=== PATIENT | male | born 1965 | race Two or more races ===

== ENCOUNTER 2017-07-31 21:28 | Emergency (ER) | payer SELFPAY ==
[2017-07-31 23:12] LABS: ADD MAN DIFF? NO
[2017-07-31] MEDS: diphenhydrAMINE 50 MG/ML VIAL IVP (23:12)
[2017-07-31] MEDS: PROCHLORPERAZINE 10 MG/2 ML VIAL. IV (23:13)
[2017-07-31 23:14] LABS: BASO # 0.1 x10^3/uL (0.0-0.2); BASO % 1 % (0-3); EOS # 0.1 x10^3/uL (0.0-0.7); EOS % 1 % (0-3); HEMATOCRIT 45.2 % (39.0-53.0); HEMOGLOBIN 15.9 g/dL (13.0-17.5); LYMPH # 2.1 x10^3/uL (1.0-4.8); LYMPH % 21 % (24-48); MEAN CORPUSCULAR HEMOGLOBIN 34 pg (25-35); MEAN CORPUSCULAR HGB CONC 35 g/dL (31-37); MEAN CORPUSCULAR VOLUME 96 fL (79-100); MONO # 0.9 x10^3/uL (0.0-1.1); MONO % 9 % (0-9); NEUT # 6.9 x10^3uL (1.8-7.7); NEUT % 69 % (31-73); PLATELET COUNT 152 x10^3/uL (140-400); RED BLOOD COUNT 4.73 x10^6/uL (4.30-5.70); WHITE BLOOD COUNT 10.1 x10^3/uL (4.0-11.0)
[2017-07-31] MEDS: IV NORMAL SALINE 1000ML BAG 1,000 ML IV (23:16)
[2017-07-31 23:24] LABS: ANION GAP 9 (6-14); BLOOD UREA NITROGEN 10 mg/dL (8-26); CALCIUM 8.7 mg/dL (8.5-10.1); CARBON DIOXIDE 26 mmol/L (21-32); CHLORIDE 101 mmol/L (98-107); GFR 79.4; GLUCOSE 110 mg/dL (70-99); POTASSIUM 3.9 mmol/L (3.5-5.1); SODIUM 136 mmol/L (136-145)
[2017-07-31 23:29] LABS: CREATINE KINASE 114 U/L (39-308); MAGNESIUM 1.8 mg/dL (1.8-2.4); PHOSPHORUS 3.1 mg/dL (2.6-4.7)
[2017-07-31 23:35] LABS: TROPONINI < 0.017 ng/mL (0.000-0.055)
[2017-08-01 00:09] LABS: ETHANOL 229 mg/dL (0-10)
== END 2017-08-01 01:45 | disposition home or self-care (01) ==
LOC: ER 08-01 01:45
DX: F10.129 Alcohol abuse with intoxication, unspecified (principal); R53.1 Weakness; R25.2 Cramp and spasm
CPT/HCPCS: 36415; 80048; 82550; 83605; 83735; 84100; 84484; 85025; 93005; 96374; 96375; 99285-25; G0480; J0780; J1200; J2060; J7030